=== PATIENT | male | born 1990 ===

== ENCOUNTER 2017-06-04 07:28 | Day surgery (SDC) | payer SELFPAY ==
[2017-06-03 14:39] VITALS: BMI 33.8
[2017-06-04] MEDS ORDERED: Lidocaine 1% Inj (20ml) INFIL ONE (09:13)
[2017-06-04] MEDS ORDERED: Lidocaine 1% PF (5ml) Amp INJ ONE (09:30)
[2017-06-04] MEDS ORDERED: ceFAZolin IV 1 gm in Dextrose 2 GM/100 ML BAG IVPB ONE (09:30)
[2017-06-04] MEDS ORDERED: Bupivacaine 0.5% Inj(30mL) IJ ONE (09:30)
[2017-06-04] MEDS ORDERED: Lidocaine Hydrochloride 10 ML INJ ONE (09:33)
[2017-06-04] MEDS ORDERED: Midazolam 2 MG/2 ML VIAL ONE (09:35)
[2017-06-04] MEDS ORDERED: Propofol 10 mg/ml Inj (20 ML) ONE ×2 (09:35→09:50)
[2017-06-04] MEDS ORDERED: Rocuronium 10 mg/ml (5 ml) ONE (09:50)
[2017-06-04] MEDS ORDERED: Succinylcholine Chloride 20 mg/ml Syr (5 ml) IV ONE (11:29)
--- NOTE | 2017-06-04 11:36 | PCM.SURG1 ---
Surgeon's Initial Post Op Note - Surgeon's Notes Surgeon: Dr. Ramirez Image Editor: Dr. Velasquez, PGY-3 Type of Anesthesia: General Endo Anesthesia Administered By: Dr. Vides Pre-Operative Diagnosis: Fracture, Dislocation & Subluxation of Ring Finger middle phalanx base Operative Findings: See operative report Post-Operative Diagnosis: Same Operation Performed: Closed Reduction & K-Wire Fixation of Ring finger middle Phalanx Base Fracture/Dislocation Specimen/Specimens Removed: none Estimated Blood Loss: EBL {In ML}: 0 Blood Products Given: N/A Drains Used: No Drains Post-Op Condition: Good Date of Surgery/Procedure: 06/04/17 Time of Surgery/Procedure: 11:40
[2017-06-04] MEDS: HYDROmorphone 0.5 mg/0.5 ml ISec IVP PRN ×4 (11:40→12:41)
[2017-06-04] MEDS ORDERED: HYDROmorphone 0.5 mg/0.5 ml ISec ONE (11:41)
[2017-06-04] MEDS ORDERED: Oxycodone/Acetaminophen 5/325 mg Tab PO PRN (11:46)
[2017-06-04] MEDS ORDERED: Lactated Ringer's 1,000 ML IV ONE (12:40)
[2017-06-04 14:10] VITALS: RESP 16
[2017-06-04 15:43] VITALS: BP 142/68; PULSE 70; TEMP 97.3; O2SAT 100
--- NOTE | 2017-06-23 01:24 | OP ---
PROCEDURE DATE: PREOPERATIVE DIAGNOSIS: Fracture of the right ring finger middle phalanx base with subluxation of the proximal interphalangeal joint. POSTOPERATIVE DIAGNOSIS: Fracture of the right ring finger middle phalanx base with subluxation of the proximal interphalangeal joint. TYPE OF ANESTHESIA: General endotracheal. SURGEON: Jane Ramirez MD MICROBIOLOGY LAB ASSISTANT: Annie Velasquez, PGY-3. PROCEDURE: Closed reduction and K-wire fixation of right ring finger middle phalanx base fracture dislocation. COUNT: Needle and sponge count was correct. CONDITION: The patient was stable upon discharge to Recovery. INDICATIONS FOR SURGERY: The patient Is a 26-year-old man, who sustained an avulsion injury of his right ring finger. The PIP joint is unstable because of the pull of the flexor tendons subluxing the joint volarly while the extensor tendon remains attached to the dorsal base of the middle phalanx. The patient is here for elective repair. DESCRIPTION OF PROCEDURE: Surgery is as follows: The patient was brought to the operating room, laid supine on the operating room table. Once general anesthesia was induced, the right arm was still blocked using 1% lidocaine, 0.5% Marcaine in a 50:50 mixture so that the median, ulnar, radial sensory, and ulnar sensory nerves were blocked. The arm was then placed in a tourniquet and prepped and draped in usual sterile fashion. Without inflating the tourniquet or exsanguinating the arm, the finger was visualized under fluoroscopy and significant subluxation, almost to the point of dislocation was noted to the PIP joint. With the PIP reduced, a 0.045 K-wire was placed across the distal phalanx into the middle phalanx and across into the proximal phalanx head and shaft, leaving the MCP free. A second K-wire was then used to spear the dorsal fragment to bring it approximated more in line with the middle phalanx. Intraoperative fluoroscopy was used throughout the case and our reduction was deemed adequate. The K-wires were trimmed, bent, and capped. The patient was placed in a finger splint incorporating the long and ring finger, leaving the small, index, and thumb free, and this was secured in place with Coban. The patient tolerated the procedure well, was extubated on the table, transferred to a stretcher, and brought to Recovery in stable condition. Jane Ramirez MD
== END 2017-06-04 15:43 | disposition home or self-care (01) ==
LOC: C.SDS 07:28
PROVIDERS: ATTEND Plastic Surgery Surgery of the Hand
DX: S62.624A Displaced fracture of middle phalanx of right ring finger, initial encounter for closed fracture (principal); F12.90 Cannabis use, unspecified, uncomplicated; Z87.891 Personal history of nicotine dependence; X50.9XXA Other and unspecified overexertion or strenuous movements or postures, initial encounter
CPT/HCPCS: 26735; C1713; J0690; J1100; J1170; J2001; J2250; J2405; J2704; J3010; J7120